=== PATIENT | female | born 1990 ===

== ENCOUNTER 2021-03-14 03:23 | Inpatient (IN) | payer OTHER ==
[~2021-03-14] VITALS: Ht 144.8 cm; Wt 40.8 kg
[2021-03-14 03:34] LABS: BASOPHILS ABSOLUTE AUTO 0.06 K/mm3 (0.00-0.23); BASOPHILS PERCENT AUTO 0 % (0-2); EOSINOPHILS ABSOLUTE AUTO 0.14 K/mm3 (0.00-0.68); EOSINOPHILS PERCENT AUTO 1 % (0-6); Hematocrit 37.7 % (33.0-51.0); Hemoglobin 12.8 g/dL (11.5-16.0); IMMATURE GRAN ABSOLUTE AUTO 0.03 K/mm3 (0.00-0.10); IMMATURE GRAN PERCENT AUTO 0 % (0-1); LYMPHOCYTES ABSOLUTE AUTO 4.87 K/mm3 (0.84-5.20); LYMPHOCYTES PERCENT AUTO 36 % (21-46); MONOCYTES ABSOLUTE AUTO 0.88 K/mm3 (0.16-1.47); MONOCYTES PERCENT AUTO 7 % (4-13); Mean Corpuscular HGB 29.8 pg (26.0-34.0); Mean Corpuscular Volume 88 fL (80-100); Mean Platelet Volume 9.6 fL (9.1-12.4); NEUTROPHILS ABSOLUTE AUTO 7.44 K/mm3 (1.96-9.15); NEUTROPHILS PERCENT AUTO 56 % (41-73); Platelet Count 390 K/mm3 (150-400); RDW Coefficient Variation 13.2 % (11.7-14.2); RDW Standard Deviation 42.6 fL (35.1-46.3); Red Blood Cell Count 4.29 M/mm3 (3.80-5.20); White Blood Cell Count 13.42 K/mm3 (4.00-11.30)
[2021-03-14 04:02] LABS: Alanine Aminotransfer (ALT/SGP 19 U/L (12-78); Albumin, Blood 3.8 g/dL (3.4-5.0); Alk Phos 42 U/L (50-136); Anion Gap 9 mmol/L (6-16); Aspartate Aminotrans (AST/SGOT 19 U/L (12-37); Bilirubin, Total 0.4 mg/dL (0.1-1.0); Blood Urea Nitrogen 15 mg/dL (8-24); Bun/Creatinine Ratio 20.3 (12.0-20.0); CO2, Blood 24 mmol/L (21-32); Calcium, Blood 8.6 mg/dL (8.5-10.1); Chloride, Blood 108 mmol/L (98-108); Creatinine, Blood 0.74 mg/dL (0.40-1.00); Glomerular Filtration Rate >60 (60-); Glucose, Blood 130 mg/dL (70-99); Potassium, Blood 3.3 mmol/L (3.5-5.5); Sodium, Blood 141 mmol/L (136-145); Total Protein, Blood 7.8 g/dL (6.4-8.2)
[2021-03-14 04:03] LABS: Source, Urine Foley catheter
[2021-03-14 04:04] LABS: PCO2 Arterial 28.5 mmHg (35-45); PO2 Arterial 93.3 mmHg (80-100); pH Blood Arterial 7.51 (7.35-7.45)
[2021-03-14 04:09] LABS: Bilirubin, Urine Neg (Neg); Blood, Urine 2+ (Neg); Glucose Qualitative, Urine Neg (Neg); Ketones, Urine Neg (Neg); Leukocyte Esterase, Urine Neg (Neg); Nitrite, Urine Neg (Neg); Protein, Urine Neg (Neg); Urobilinogen, Urine NORM (Normal)
[2021-03-14 04:13] LABS: Appearance, Urine Clear (Clear); Color, Urine Pale Yellow (P-Yellow)
[2021-03-14 04:40] LABS: U Amphetamine Screen Not Detected; U Barbituate Screen Not Detected; U Benzodiazapine Screen Not Detected; U Buprenorphine Screen Not Detected; U Cannabinoids Screen Not Detected; U Cocaine Screen Not Detected; U Methadone Screen Not Detected; U Methamphetamine Screen Not Detected; U Opiates Screen Not Detected; U Oxycodone Screen Not Detected; U Phencyclidine Screen Not Detected; U Propoxyphene Screen Not Detected
[2021-03-14 04:42] LABS: Bacteria Not Seen /hpf; Red Blood Cells, Urine Rare /hpf (0-2); Squamous Epithelial Cells Few /hpf (Few)
[2021-03-14 04:43] LABS: White Blood Cells, Urine Not Seen /hpf (0-5)
--- NOTE | 2021-03-14 08:40 | NUR ---
DR. DEWITT IN TO SEE PT. UPDATED TO CURRENT VS AND STATUS. FENTANYL AND VERSED DRIP DISCONTINUED PER DR. DEWITT ORDER.
--- NOTE | 2021-03-14 08:50 | NUR ---
DR. DEWITT AT BEDSIDE. VENT CHANGED TO RATE 12 ADN TV 300-ITZ RT MADE AWARE.
--- NOTE | 2021-03-14 08:54 | NUR ---
DR. DEWITT PLANS TO ATTEMPT WEANING TRIAL TODAY-VERBAL ORDER GIVEN TO TITRATE DOWN SEDATION. KEPPRA TO BE DISCONTINUED AND IF PT HAS A SEIZURE, ATIVAN TO BE GIVEN.
--- NOTE | 2021-03-14 09:07 | NUR ---
ADMIT 03/14/21 @ 0740: RECEIVED PT FROM ER [facility]IA [facility]. DX- OD OF UNKNOWN SUBSTANCE/ SEIZURES.PT INTUBATED AND SEDATED ON FENTANYL @ 75 MCG/HR AND VERSED @ 1 MG/HR. WHEN MOVING PT FROM GURNEY TO ICU BED, PT BECAME EXTREMELY AGITATED. SHE SAT UP IN BED, WAS PULLING ON THE RESTRAINTS AND THRASHING IN THE BED. VERSED DRIP TITRATED UP TO 4 MG/HR AND PROPOFOL DRIP INITIATED @ 20 MCG/KG/MIN. ONCE PT NOT AGITATED, VERSED DRIP DECREASED TO 1 MG/HR AND FENTANYL DECREASED TO 25 MCG/HR. TEMP 99.3. ECG SHOWS SR. SBP TRENDING 90-110'S. NO NOTED EDEMA. LUNGS CLEAR. ETT 7.5 @ TEETH. ETT TO VENT: AC/VC 15, TV 350, FIO2 35%, PEEP 5-SATS 100% MININAL ETT SECRETION. OGT CLAMPED. ABDOMEN SOFT AND NONTENDER TO PALPATION. PAIZ WITH TEMP PROBE PLACE IN ER-TO BSD AND DRAINING ADEQUATE AMOUNT OF CLEAR, YELLOW URINE. PT SKIN IS CLEAR AND SHE APPEARS WELL NOURISHED AND KEPT. PT ORIGINALLY CAME IN A "CARPIO" ACCORDING TO THE ER REPORT, EMS DISPATCH IS WORKING ON OBTAINING NEXT OF KIN INFORMATION.
--- NOTE | 2021-03-14 09:45 | NUR ---
PT WIDE AWAKE, SITTING UP IN BED, AND REACHING FOR ETT ON PROPOFOL @ 15 MCG/KG/MIN. PT DID FOLLOW COMMANDS AND SHAKE HER HEAD "YES." DR. DEWITT AWARE-PLAN TO RESEDATE PT FOR NOW AND ATTEMPT WEANING LATER TODAY. PROPOFOL TITRATED UP TO 25 MCG/KG/MIN.
--- NOTE | 2021-03-14 10:15 | NUR ---
PROPOFOL DRIP DISCONTINUED-PRECEDEX DRIP INITIATED @ 0.4 MCG/KG/MIN-PER DR. DEWITT ORDERS.
--- NOTE | 2021-03-14 11:05 | NUR ---
PT PLACED ON SPONTANEOUS BY DR. DEWITT @ 1050 PT IS OPENING EYES AND FOLLOWING COMMANDS. WITH PRECEDEX @ 0.4 MG/KG/MIN. AFTER APROXIMATELY 10 MINUTES, DR. DEWITT GAVE THE VERBAL ORDER TO EXTUBATE PT. PT EXTUBATED @ 1104 TO RA AND SATS>90%. PREDEDEX DISCONTINUED. RESTRAINTS DISCONTINUED @ 1105. PT VOICE IS HOARSE, BUT SHE IS ABLE TO COMMUNICATE NEEDS WELL AND SEEMS ORIENTED. PT GAVE RN HER MOTHER'S PHONE NUMBER AND REQUESTED THAT SHE BE CONTACTED. RN LEFT VOICEMAIL FOR PT MOTHER. PT STATES THAT SHE HAS BEEN CLEAN FOR OVER 2 YEARS AND THAT SHE ASSUMED THAT THE DRUG SHE CONSUMED WAS "COCAINE."
--- NOTE | 2021-03-14 13:30 | NUR ---
PT RESTS QUIETLY WHEN NOT DISTURBED. PT AWAKENS EASILY TO VOICE AND IS A&OX4. PT VOICE IS HOARSE AND SHE REPORTS HAVING A "SORE THROAT." PT MAINTAINS SATS>90% ON RA. VS WDL. DR. VELASCO UPDATED TO CURRENT VS AND STATUS. PT MEDICAL FLOOR STATUS. FULL LIQUID DIET OREDERED, BUT PT REFUSING FOOD OR FLUIDS AT THIS TIME SHE STATES THAT HER THROAT IS TOO SORE.
[2021-03-14 15:14] LABS: BASOPHILS ABSOLUTE AUTO 0.03 K/mm3 (0.00-0.23); BASOPHILS PERCENT AUTO 0 % (0-2); EOSINOPHILS ABSOLUTE AUTO 0.05 K/mm3 (0.00-0.68); EOSINOPHILS PERCENT AUTO 0 % (0-6); Hematocrit 36.6 % (33.0-51.0); IMMATURE GRAN ABSOLUTE AUTO 0.03 K/mm3 (0.00-0.10); IMMATURE GRAN PERCENT AUTO 0 % (0-1); LYMPHOCYTES ABSOLUTE AUTO 1.83 K/mm3 (0.84-5.20); LYMPHOCYTES PERCENT AUTO 14 % (21-46); MONOCYTES ABSOLUTE AUTO 1.04 K/mm3 (0.16-1.47); MONOCYTES PERCENT AUTO 8 % (4-13); Mean Corpuscular HGB 29.3 pg (26.0-34.0); Mean Corpuscular HGB Conc 32.8 g/dL (31.5-36.5); Mean Corpuscular Volume 90 fL (80-100); Mean Platelet Volume 9.6 fL (9.1-12.4); NEUTROPHILS PERCENT AUTO 78 % (41-73); Platelet Count 277 K/mm3 (150-400); RDW Coefficient Variation 13.4 % (11.7-14.2); RDW Standard Deviation 44.1 fL (35.1-46.3); Red Blood Cell Count 4.09 M/mm3 (3.80-5.20); White Blood Cell Count 13.38 K/mm3 (4.00-11.30)
--- NOTE | 2021-03-14 15:15 | NUR ---
PT ASSISTED TO SIT AT THE BEDSIDE X 10 MINUTES-TOLERATED WELL. PT APPEARS TREMULOUS, BUT SHE STATES THAT SHE HAS BEEN "SHAKY" SINCE SHE HAD COVID EARLIER THIS YEAR. PAIZ CATHETER DISCONTINUED AND PT ASSISTED (STANDBY) UP TO BRP.
--- NOTE | 2021-03-14 15:30 | NUR ---
PT ASSISTED TO SHOWER(SHOWER CHAIR) BY DEIRDRE. BEFORE GETTING INTO THE SHOWER, PT STARTED COUGHING, GAGGING, AND DRY HEAVING. PT MED WITH ZOFRAN 4 MG IVP X 1. PT REPORTS COMPLETE RESOLUTION OF NAUSEA. PT TOLERATED SHOWER WELL. VS WDL. NO NOTED RESPIRATORY DISTRESS.
[2021-03-14 15:40] LABS: Alanine Aminotransfer (ALT/SGP 19 U/L (12-78); Albumin, Blood 3.4 g/dL (3.4-5.0); Albumin/Globulin Ratio 0.9 (0.8-1.8); Alk Phos 41 U/L (50-136); Anion Gap 3 mmol/L (6-16); Aspartate Aminotrans (AST/SGOT 15 U/L (12-37); Bilirubin, Total 0.4 mg/dL (0.1-1.0); Blood Urea Nitrogen 13 mg/dL (8-24); Bun/Creatinine Ratio 18.4 (12.0-20.0); CO2, Blood 27 mmol/L (21-32); Calcium, Blood 8.5 mg/dL (8.5-10.1); Chloride, Blood 112 mmol/L (98-108); Creatinine, Blood 0.71 mg/dL (0.40-1.00); Globulin, Blood 3.7 g/dL (2.2-4.0); Glomerular Filtration Rate >60 (60-); Glucose, Blood 92 mg/dL (70-99); Potassium, Blood 3.9 mmol/L (3.5-5.5); Sodium, Blood 142 mmol/L (136-145); Total Protein, Blood 7.1 g/dL (6.4-8.2)
--- NOTE | 2021-03-14 18:11 | NUR ---
PT TALKING ON THE TELEPHONE WITHOUT NOTED DISTRESS. PT REPORTS POOR APPETITE. PT HAS FULL LIQUID DINNER TRAY AT BEDSIDE, BUT SHE HAS NOT EATEN ANY SO FAR. NS CONTINUES @ 75 CC/HR.
--- NOTE | 2021-03-14 19:30 | NUR ---
ASSUMED CARE OF PT AT 1900. REPORT RECEIVED FROM MANDI SHIN. PT IS AWAKENED FROM SLEEPING FOR ASSESSMENT. AOX4, PERRL 2MM, HOARSE NON-PRODUCTIVE COUGH NOTED, LS WHEEZES, PT HAS NOT VOIDED SINCE REMOVAL OF PAIZ CATHETER. PT REPORTS HAVING THIS COUGH SINCE HAVING COVID DURING WINTER BREAK. SHE STATES SHE IS ALSO SHAKY AND EASILY LIGHTHEADED SINCE HER COVID INFECTION. SHE STATES SHE IS UNSURE WHY SHE HAD A SZ, REPORTS HAVING A COUPLE ALCOHOLIC DRINKS, BUT DENIES ANY OTHER SUBSTANCES.
--- NOTE | 2021-03-14 19:39 | NUR ---
DR BACON UPDATED WITH STAT RENAL PANEL. NEW MEDICATION ORDERS RECEIVED.
--- NOTE | 2021-03-14 22:15 | NUR ---
DR GALVEZ CONTACTED FOR MEDICATION ORDER FOR SORE THROAT AND COUGH. NEW ORDERS RECEIVED.
[2021-03-15 03:31] LABS: Hematocrit 33.5 % (33.0-51.0); Hemoglobin 10.9 g/dL (11.5-16.0); Mean Corpuscular HGB 29.5 pg (26.0-34.0); Mean Corpuscular HGB Conc 32.5 g/dL (31.5-36.5); Mean Corpuscular Volume 91 fL (80-100); Mean Platelet Volume 9.9 fL (9.1-12.4); Platelet Count 238 K/mm3 (150-400); RDW Coefficient Variation 13.5 % (11.7-14.2); RDW Standard Deviation 45.1 fL (35.1-46.3); Red Blood Cell Count 3.69 M/mm3 (3.80-5.20); White Blood Cell Count 13.64 K/mm3 (4.00-11.30)
[2021-03-15 03:49] LABS: Anion Gap 4 mmol/L (6-16); Blood Urea Nitrogen 15 mg/dL (8-24); Bun/Creatinine Ratio 20.3 (12.0-20.0); CO2, Blood 27 mmol/L (21-32); Calcium, Blood 8.4 mg/dL (8.5-10.1); Chloride, Blood 109 mmol/L (98-108); Creatinine, Blood 0.74 mg/dL (0.40-1.00); Glomerular Filtration Rate >60 (60-); Glucose, Blood 123 mg/dL (70-99); Potassium, Blood 3.7 mmol/L (3.5-5.5); Sodium, Blood 140 mmol/L (136-145)
--- NOTE | 2021-03-15 05:49 | NUR ---
PT SLEEPS SOUNDLY FOR LONG STRETCHES WITH BRIEF INTERRUPTIONS FOR CARE. HER APPETITE IS IMPROVING AND SHE ATE YOGURT, ICECREAM, AND APPLESAUCE LATE LAST NIGHT. VS WNL. HOARSE BARKING COUGH CONTINUES, AND SORE THROAT IS HELPED WITH CEPACOL LOSENGES AND TYLENOL. NO OTHER SIGNIFICANT CHANGES NOTED. WILL CONTINUE TO MONITOR AND REPORT TO ONCOMING SHIFT.
--- NOTE | 2021-03-15 08:00 | NUR ---
PT A&OX4. DENIES PAIN OR NAUSEA THIS AM. TEMP 100.9. SBP TRENDING 110'S. LUNGS WITH SCATTERED WHEEZES THROUGH OUT AND HARSH, BARKY, NONPRODUCTIVE COUGH NOTED. ITZ, RT CONSULTED FOR NEB TREATMENT. WILL ENCOURAGE IS AND C&DB. PT MAINTAINS SATS IN THE UPPER 90'S ON RA AND DOES NOT SEEM TO BE IN ANY RESPIRATORY DISTRESS. PT REFUSING LOVENOX THIS AM. PT STATES THAT SHE IS ANXIOUS TO "GO HOME."
--- NOTE | 2021-03-15 12:00 | NUR ---
PT CONTINUES TO REPORT SORE THROAT. HARSH, BARKY, NONPRODUCTIVE COUGH CONTINUES. LUNGS CONTINUE WITH SCATTERED WHEEZES, BUT SATS>90% ON RA. ITZ, RT TO GIVE PT ALBUTEROL NEB. TEMP 100.6. PT REFUSING ADL'S AT THIS TIME. PT HAS BEEN GETTING OOB TO BRP WITHOUT DIFFICULTY AND REPOSITIONS HERSELF IN BED. CALL LIGHT WITHIN REACH.
--- NOTE | 2021-03-15 15:30 | NUR ---
PT REPORTS 08/15 HEADACHE. TEMP 100.8-MED WITH TYLENOL 650 MG PO X 1-SEE EMAR. PT TOLERATING INCENTIVE SPIROMETER WELL. COUGH SEEMS TO BE SLIGHTLY LESS HARSH. PT MAINTAINS SATS >90% BUT LUNGS CONTINUE WITH SCATTERED EXPIRATORY WHEEZES THROUGH OUT. PT STANDBY ASSIST UP TO BRP-SHE IS TREMULOUS AT TIMES, BUT HER GAIT SEEMS MOVE STEADY THAN 03/14/21. NO NOTED SOB OR INCREASED WOB WITH AMBULATION.
--- NOTE | 2021-03-15 16:27 | NUR ---
NO ACUTE CHANGES. REPORT PHONED TO MANDI LYMAN IN PREP TO TRANSFER PT TO ROOM 324.
--- NOTE | 2021-03-15 17:59 | NUR ---
MANDI recrebecca report from MANDI Lan from ICU on patient. THis patient was transferred at 1615, she was alert and orient and very tremulous upon arrival. She was able to express her needs and ambulate to the bed. She had a dry non productive cough, but Robitussin was just given prior to her transfer. She is currently on a clear liquid diet and is eating her supper. She request to take a shower.
--- NOTE | 2021-03-16 04:57 | NUR ---
SHIFT SUMMARY AOX4. TREMULOUS BUE. VSS. DENIES PAIN, SOB OR N/V. SPO2 >90% ON RA. LS CLEAR. TOLERATING PO W/O COUGHING. REPORTS COUGH, SORE THROAT-GAVE ROBITUSSIN & THROAT LOSANGE 1X. IND ABLE TO TRANSFER SAFELY IN RM. CALL LIGHT IN REACH, ABLE TO MAKE NEEDS KNOWN. WCTM.
[2021-03-16 05:33] LABS: Hematocrit 34.3 % (33.0-51.0); Hemoglobin 10.8 g/dL (11.5-16.0); Mean Corpuscular HGB Conc 31.5 g/dL (31.5-36.5); Mean Corpuscular Volume 92 fL (80-100); Mean Platelet Volume 10.1 fL (9.1-12.4); Platelet Count 244 K/mm3 (150-400); RDW Coefficient Variation 13.3 % (11.7-14.2); RDW Standard Deviation 45.4 fL (35.1-46.3); Red Blood Cell Count 3.72 M/mm3 (3.80-5.20); White Blood Cell Count 8.72 K/mm3 (4.00-11.30)
--- NOTE | 2021-03-16 07:38 | NUR ---
MANDI brown handoff of patient care from MANDI Betts Patient was in bed asleep and did not appear to be in any distress
--- NOTE | 2021-03-16 11:32 | NUR ---
Patient was alert and orient, she reported that she slept well except for the cough that she has. SHe as given PRN Guifenisen with her morning medications. SHe had no complaints of pain and is excited to be discharging to home today, She had no requests at this time
[2021-03-16] MEDS ORDERED: AMOX500 PO (11:45)
--- NOTE | 2021-03-16 13:26 | NUR ---
PATIENT WAS DISCHARGED TO HOME TODAY. SHE LEFT AT 1315 AND WAS ACCOMPANIED BY STAFF OFF OF THE UNIT. HER MOM DID COME AND PICK HER UP. RN REVIEWED WITH PATIENT THE DISCHARGE INSTRUCTIONS, MEDICATION, AND HOW TO ESTABLISH A PRIMARY CARE PROVIDER. PATIENT WAS APPROPRIATE FOR DISCHARGE
== END 2021-03-16 13:17 | disposition home or self-care (01) | DRG 917 ==
LOC: ER 03:23 → EDBD 03:23 → ERHOLD 03:24 → ICUE 07:35 → MEDS 03-15 16:37
PROVIDERS: Internal Medicine; Student in an Organized Health Care Education/Training Program; ADMIT Internal Medicine
PROC: 0BH18EZ Insertion of Endotracheal Airway into Trachea, Via Natural or Artificial Opening Endoscopic (ICD-10-PCS; principal; 2021-03-14)
PROC: 5A1935Z Respiratory Ventilation, Less than 24 Consecutive Hours (ICD-10-PCS; 2021-03-14)
DX: T50.991A Poisoning by other drugs, medicaments and biological substances, accidental (unintentional), initial encounter (principal); J96.01 Acute respiratory failure with hypoxia; G92.8 Other toxic encephalopathy; J96.02 Acute respiratory failure with hypercapnia; E87.6 Hypokalemia; D72.829 Elevated white blood cell count, unspecified; X58.XXXA Exposure to other specified factors, initial encounter
CPT/HCPCS: 31500; 36415; 36600; 51702; 70450; 71045; 80048; 80053; 81001; 82550; 82803; 83735; 84145; 84484; 85025; 85027; 93005; 93010; 94002; 94003; 94640; 94762; 96365-59; 96366-59; 96368; 96372; 96375; 96375-59; 96376; 99291-25; A9270; G0378; J0696; J1650; J1953; J2060; J2250; J2310; J2405; J2704; J3010; J7030; J7050